=== PATIENT | female | born 1975 | race Asian ===

== ENCOUNTER 2017-04-26 14:03 | Emergency (ER) | END 2017-04-26 19:32 | disposition home or self-care (01) ==

== ENCOUNTER 2017-05-12 21:39 | Inpatient (IN) | END 2017-05-17 16:15 | disposition home or self-care (01) | DRG 446 ==

== ENCOUNTER 2017-05-20 03:18 | Emergency (ER) | END 2017-05-20 06:19 | disposition home or self-care (01) ==